=== PATIENT | female | born 1930 | race Caucasian/White ===

== ENCOUNTER 2016-08-28 09:01 | Inpatient (IN) | payer OTHER ==
[~2016-08-28] VITALS: Ht 149.9 cm; Wt 62.3 kg
[~2016-08-28 09:01] MED LIST: AMARYL1 MG PO; ATORVASTATIN CA40 MG PO; Aspirin E.C. PO; Ativan PO; BENICAR HCT 401 EACH PO; BENICAR40 MG PO; BUMETANIDE1 MG PO; CALCITRIOL0.25 MCG PO; CIPRO250 MG PO; CIPRO500 MG PO; CLOPIDOGREL75 MG PO; COZAAR25 MG PO; DEMADEX20 MG PO; ERGOCALCIF50000 UNIT PO; FERROUS SULFAT325 MG PO; FISH OIL SOFTG1 EACH PO; FISH OIL500 MG PO; FUROSEMIDE40 MG PO; Fish Oil PO; GLIMEPIRIDE1 MG PO; GLIPIZIDE5 MG PO; INDOCIN50 MG PO; INDOMETHACIN50 MG PO; JANUVIA25 M1 PO; JENTADUETO 2.51 EACH PO; Janumet 50/1,000 PO; LASIX40 MG PO; LIPITOR40 MG PO; LO-DOSE ASPIRIN81 M1 PO; LOPRESSOR100 M1 PO; LOSARTAN POTASS25 MG PO; LYRICA75 MG PO; Lasix PO; METFORMIN HCL1000 M1 PO; METOPROLOL TAR100 MG PO; NAMENDA XR28 MG PO; Norvasc PO; POTASSIUM CHLO10 ME3 PO; Plavix PO; Protonix PO; TOPROL XL100 MG PO
[2016-08-28 09:59] LABS: CHLORIDE 112 mEq/L (99-109); POTASSIUM 4.9 mEq/L (3.7-5.4); SODIUM 139 mEq/L (136-147)
[2016-08-28 10:02] LABS: ANION GAP 10 MEQ/L (2-14)
[2016-08-28 10:03] LABS: HEMATOCRIT 27.9 % (36.0-46.0); MCH 30.5 PG (29.0-34.0); MCHC 32.6 G/DL (30.0-36.0); MCV 93.6 FL (83-99); MEAN PLAT.VOLUME 11.7 uM^3 (9.5-12.4); PLATELET COUNT 191 K/uL (156-360); RBC DIS.WIDTH-CV 16.2 % (11.8-14.6); RBC DIS.WIDTH-SD 54.6 % (39-53); RED BLOOD COUNT 2.98 M/uL (3.80-5.20); WHITE BLOOD COUNT 8.8 K/uL (4.1-10.2)
[2016-08-28 10:03] LABS: TOTAL BILIRUBIN 0.3 mg/dL (0.0-1.0)
[2016-08-28 10:05] LABS: ALKALINE PHOSPHATASE 85 IU/L (3-129); GFR ESTIMATE (CALCULATED) 20 mL/min/
[2016-08-28 10:06] LABS: UREA NITROGEN (BUN) 99 mg/dL (9-23)
[2016-08-28 10:07] LABS: GLUCOSE 130 mg/dL (70-99)
[2016-08-28 10:08] LABS: LIPASE 733 U/L (1.0-51.0)
[2016-08-28 10:08] LABS: EOSINOPHIL (%) 0.7 % (0-5); EOSINOPHIL COUNT 0.1 K/uL (0-0.3); IMMATURE GRANULOCYTE (%) 0.6 % (0.0-0.7); IMMATURE GRANULOCYTE COUNT 0.1 K/uL; LYMPHOCYTE COUNT 1.1 K/uL (1.0-2.8); MONOCYTE (%) 8.8 % (3-12); MONOCYTE COUNT 0.8 K/uL (0-0.8); NEUTROPHIL (%) 77.7 % (45-76); NEUTROPHIL COUNT 6.8 K/uL (1.8-6.4)
[2016-08-28 10:12] LABS: TROP-I INTERPRETATION NEGATIVE; TROPONIN-I 0.04 ng/mL (0.0-0.30)
[2016-08-28] MEDS ORDERED: JANUVIA100 MG PO (11:26)
[2016-08-28] MEDS ORDERED: CEFDINIR300 MG PO (11:28)
[2016-08-28] MEDS ORDERED: CHERATUSSIN AC473 ML PO (11:28)
[2016-08-28] MEDS ORDERED: HUMALOG100 UNIT/2 SC (11:29)
[2016-08-28] MEDS ORDERED: TRESIBA FL100 UNIT/1 SC (11:29)
[2016-08-28 19:48] VITALS: BP 135/80
[2016-08-28 23:54] VITALS: BP 123/63
[2016-08-29 03:51] VITALS: BP 163/69
[2016-08-29 07:25] LABS: HEMATOCRIT 28.5 % (36.0-46.0); MCH 29.6 PG (29.0-34.0); MCHC 31.2 G/DL (30.0-36.0); MCV 94.7 FL (83-99); PLATELET COUNT 193 K/uL (156-360); RBC DIS.WIDTH-CV 16.8 % (11.8-14.6); RBC DIS.WIDTH-SD 58.1 % (39-53); RED BLOOD COUNT 3.01 M/uL (3.80-5.20); WHITE BLOOD COUNT 7.7 K/uL (4.1-10.2)
[2016-08-29 07:46] LABS: ALKALINE PHOSPHATASE 66 IU/L (3-129); AMYLASE 59 IU/L (1-118); ANION GAP 11 MEQ/L (2-14); CHLORIDE 113 MEQ/L (99-109); GFR ESTIMATE (CALCULATED) 27 mL/min/; LIPASE 28 U/L (1.0-51.0); POTASSIUM 4.4 MEQ/L (3.7-5.4); SAMPLE HEMOLYSIS CHECK 0; SAMPLE ICTERIC CHECK 0; SAMPLE LIPEMIA CHECK 0; SODIUM 140 MEQ/L (136-147); TOTAL BILIRUBIN 0.5 MG/DL (0.0-1.0); UREA NITROGEN (BUN) 71 mg/dL (9-23)
[2016-08-29 07:49] LABS: GLUCOSE 83 mg/dL (70-99)
[2016-08-29 08:02] VITALS: BP 136/65
[2016-08-29 12:10] VITALS: BP 137/67
[2016-08-29 15:24] VITALS: BP 132/82
[2016-08-29 19:01] VITALS: BP 139/65
[2016-08-29 23:51] VITALS: BP 143/85
[2016-08-30 03:50] VITALS: BP 140/71
[2016-08-30 06:37] LABS: HEMATOCRIT 25.9 % (36.0-46.0); MCH 30.7 PG (29.0-34.0); MCHC 32.4 G/DL (30.0-36.0); MCV 94.5 FL (83-99); MEAN PLAT.VOLUME 10.9 uM^3 (9.5-12.4); PLATELET COUNT 167 K/uL (156-360); RBC DIS.WIDTH-CV 16.6 % (11.8-14.6); RBC DIS.WIDTH-SD 57.1 % (39-53); RED BLOOD COUNT 2.74 M/uL (3.80-5.20); WHITE BLOOD COUNT 5.6 K/uL (4.1-10.2)
[2016-08-30 07:08] LABS: ALKALINE PHOSPHATASE 59 IU/L (3-129); ANION GAP 10 MEQ/L (2-14); CHLORIDE 109 MEQ/L (99-109); GFR ESTIMATE (CALCULATED) 35 mL/min/; GLUCOSE 191 mg/dL (70-99); LIPASE 36 U/L (1.0-51.0); POTASSIUM 4.4 MEQ/L (3.7-5.4); SAMPLE HEMOLYSIS CHECK 0; SAMPLE ICTERIC CHECK 0; SAMPLE LIPEMIA CHECK 0; SODIUM 136 MEQ/L (136-147); TOTAL BILIRUBIN 0.4 MG/DL (0.0-1.0); UREA NITROGEN (BUN) 48 mg/dL (9-23)
[2016-08-30 08:06] VITALS: BP 184/71
[2016-08-30 11:43] VITALS: BP 124/58
[2016-08-30 15:18] LABS: IRON 54 MCG/DL (35-150)
[2016-08-30 16:05] VITALS: BP 141/87
[2016-08-30 20:00] VITALS: BP 147/67
[2016-08-31] VITALS: BP 135/58
[2016-08-31 04:00] VITALS: BP 160/70
[2016-08-31 07:14] LABS: CARBON DIOXIDE (BICARBONATE) 19.6 MEQ/L (20-31)
[2016-08-31 07:45] LABS: ALKALINE PHOSPHATASE 68 IU/L (3-129); ANION GAP 7 MEQ/L (2-14); CHLORIDE 113 MEQ/L (99-109); GFR ESTIMATE (CALCULATED) 41 mL/min/; GLUCOSE 204 mg/dL (70-99); POTASSIUM 4.5 MEQ/L (3.7-5.4); SAMPLE HEMOLYSIS CHECK 0; SAMPLE ICTERIC CHECK 0; SAMPLE LIPEMIA CHECK 0; SODIUM 137 MEQ/L (136-147); UREA NITROGEN (BUN) 34 mg/dL (9-23)
[2016-08-31 07:47] LABS: INTACT PARATHYROID HORMONE 36 pg/mL (10-69); TOTAL BILIRUBIN 0.5 MG/DL (0.0-1.0)
[2016-08-31 07:51] LABS: HEMATOCRIT 25.6 % (36.0-46.0); MCHC 33.2 G/DL (30.0-36.0); MCV 93.4 FL (83-99); MEAN PLAT.VOLUME 10.6 uM^3 (9.5-12.4); PLATELET COUNT 174 K/uL (156-360); RBC DIS.WIDTH-CV 16.2 % (11.8-14.6); RBC DIS.WIDTH-SD 54.7 % (39-53); RED BLOOD COUNT 2.74 M/uL (3.80-5.20)
[2016-08-31 07:54] LABS: ANION GAP 7 MEQ/L (2-14); CHLORIDE 113 MEQ/L (99-109); GFR ESTIMATE (CALCULATED) 41 mL/min/; GLUCOSE 204 mg/dL (70-99); LIPASE 38 U/L (1.0-51.0); POTASSIUM 4.5 MEQ/L (3.7-5.4); SAMPLE HEMOLYSIS CHECK 0; SAMPLE ICTERIC CHECK 0; SAMPLE LIPEMIA CHECK 0; SODIUM 137 MEQ/L (136-147); UREA NITROGEN (BUN) 34 mg/dL (9-23)
[2016-08-31 08:00] VITALS: BP 178/85
[2016-08-31 08:13] LABS: WHITE BLOOD COUNT 7.5 K/uL (4.1-10.2)
[2016-08-31 12:00] VITALS: BP 161/70
[2016-08-31 15:59] VITALS: BP 183/84
[2016-08-31 20:00] VITALS: BP 178/66
[2016-08-31 21:40] LABS: POINT-OF-CARE METER ID UU14162508
[2016-09-01 00:20] VITALS: BP 140/64
[2016-09-01 04:00] VITALS: BP 165/78
[2016-09-01 08:14] VITALS: BP 152/75
[2016-09-01 09:04] LABS: ALKALINE PHOSPHATASE 107 IU/L (3-129); ANION GAP 8 MEQ/L (2-14); CHLORIDE 112 MEQ/L (99-109); GFR ESTIMATE (CALCULATED) 35 mL/min/; GLUCOSE 212 mg/dL (70-99); GLUCOSE 213 mg/dL (70-99); LIPASE 21 U/L (1.0-51.0); POTASSIUM 4.9 MEQ/L (3.7-5.4); SAMPLE HEMOLYSIS CHECK 0; SAMPLE ICTERIC CHECK 0; SAMPLE LIPEMIA CHECK 0; SODIUM 139 MEQ/L (136-147); TOTAL BILIRUBIN 0.5 MG/DL (0.0-1.0); UREA NITROGEN (BUN) 32 mg/dL (9-23); UREA NITROGEN (BUN) 33 mg/dL (9-23)
[2016-09-01 09:14] LABS: MCH 30.9 PG (29.0-34.0); MCHC 32.6 G/DL (30.0-36.0); MCV 94.7 FL (83-99); MEAN PLAT.VOLUME 10.7 uM^3 (9.5-12.4); PLATELET COUNT 205 K/uL (156-360); RBC DIS.WIDTH-CV 16.1 % (11.8-14.6); RBC DIS.WIDTH-SD 55.7 % (39-53); RED BLOOD COUNT 2.85 M/uL (3.80-5.20)
[2016-09-01 09:26] LABS: WHITE BLOOD COUNT 10.2 K/uL (4.1-10.2)
[2016-09-01 15:24] VITALS: BP 135/79
[2016-09-01 20:16] VITALS: BP 170/68
[2016-09-02] VITALS: BP 141/65
[2016-09-02 04:00] VITALS: BP 144/78
[2016-09-02 08:55] VITALS: BP 144/75
[2016-09-02 09:45] LABS: HEMATOCRIT 28.4 % (36.0-46.0); MCH 30.7 PG (29.0-34.0); MCV 95.9 FL (83-99); MEAN PLAT.VOLUME 11.3 uM^3 (9.5-12.4); PLATELET COUNT 212 K/uL (156-360); RBC DIS.WIDTH-CV 16.2 % (11.8-14.6); RBC DIS.WIDTH-SD 55.8 % (39-53); RED BLOOD COUNT 2.96 M/uL (3.80-5.20)
[2016-09-02 10:24] LABS: WHITE BLOOD COUNT 13.5 K/uL (4.1-10.2)
[2016-09-02 10:33] LABS: ALKALINE PHOSPHATASE 118 IU/L (3-129); ANION GAP 9 MEQ/L (2-14); CHLORIDE 110 MEQ/L (99-109); GFR ESTIMATE (CALCULATED) 30 mL/min/; GLUCOSE 246 mg/dL (70-99); POTASSIUM 5.5 MEQ/L (3.7-5.4); SAMPLE HEMOLYSIS CHECK 0; SAMPLE ICTERIC CHECK 0; SAMPLE LIPEMIA CHECK 0; SODIUM 137 MEQ/L (136-147); TOTAL BILIRUBIN 0.5 MG/DL (0.0-1.0); UREA NITROGEN (BUN) 42 mg/dL (9-23)
[2016-09-02 12:05] VITALS: BP 179/73
[2016-09-02 16:49] VITALS: BP 146/74
[2016-09-02] MEDS ORDERED: PHENERGAN-CODE120 ML PO (16:55)
[2016-09-02] MEDS ORDERED: DULOXETINE HCL30 MG PO (16:55)
[2016-09-02] MEDS ORDERED: OXYCODONE HCL5 MG PO (16:55)
[2016-09-02] MEDS ORDERED: CEFTIN250 MG PO (16:55)
[2016-09-02] MEDS ORDERED: PANTOPRAZOLE SO40 MG PO (16:55)
[2016-09-02] MEDS ORDERED: TORSEMIDE10 MG PO (16:55)
[2016-09-02] MEDS ORDERED: NABI650T PO (16:55)
== END 2016-09-02 18:48 | disposition home health service (06) | DRG 438 ==
LOC: EME → EDBD 09:01 → 2EAST 12:30 → EDOF 12:30 → 2EAST 17:02
PROVIDERS: Emergency Medicine; Internal Medicine
DX: K85.10 Biliary acute pancreatitis without necrosis or infection (principal); J18.9 Pneumonia, unspecified organism; N17.9 Acute kidney failure, unspecified; K81.9 Cholecystitis, unspecified; K83.8 Other specified diseases of biliary tract; I13.0 Hypertensive heart and chronic kidney disease with heart failure and stage 1 through stage 4 chronic kidney disease, or unspecified chronic kidney disease; I50.9 Heart failure, unspecified; N18.3 Chronic kidney disease, stage 3 (moderate); I42.9 Cardiomyopathy, unspecified; N25.81 Secondary hyperparathyroidism of renal origin; E11.21 Type 2 diabetes mellitus with diabetic nephropathy; E11.22 Type 2 diabetes mellitus with diabetic chronic kidney disease; E11.65 Type 2 diabetes mellitus with hyperglycemia; D63.1 Anemia in chronic kidney disease; D50.9 Iron deficiency anemia, unspecified; I27.2 Other secondary pulmonary hypertension; I08.1 Rheumatic disorders of both mitral and tricuspid valves; I25.10 Atherosclerotic heart disease of native coronary artery without angina pectoris; E55.9 Vitamin D deficiency, unspecified; J44.9 Chronic obstructive pulmonary disease, unspecified; F03.90 Unspecified dementia, unspecified severity, without behavioral disturbance, psychotic disturbance, mood disturbance, and anxiety; Z95.1 Presence of aortocoronary bypass graft; Z79.4 Long term (current) use of insulin; Z86.73 Personal history of transient ischemic attack (TIA), and cerebral infarction without residual deficits; Z87.891 Personal history of nicotine dependence
CPT/HCPCS: 36415; 70450; 71020; 74150; 74183; 76705; 80053; 80069; 81003; 82150; 82306; 82803; 82948; 83540; 83690; 83970; 84466; 84484; 85025; 85027; 86850; 86900; 86901; 87040; 93005; 94640; 94640 76; 94799; 99202; 99281; 99285; J0692; J1815; J2405; J7040; J7050

== ENCOUNTER 2016-10-25 14:14 | Observation (INO) | payer OTHER ==
[~2016-10-25] VITALS: Ht 149.9 cm; Wt 66.6 kg
[~2016-10-25 14:14] MED LIST changes: +CEFDINIR300 MG PO; +CEFTIN250 MG PO; +CHERATUSSIN AC473 ML PO; +DULOXETINE HCL30 MG PO; +HUMALOG100 UNIT/2 SC; +JANUVIA100 MG PO; +NABI650T PO; +OXYCODONE HCL5 MG PO; +PANTOPRAZOLE SO40 MG PO; +PHENERGAN-CODE120 ML PO; +TORSEMIDE10 MG PO; +TRESIBA FL100 UNIT/1 SC
[2016-10-25 15:19] LABS: EOSINOPHIL (%) 0 % (0-5); HEMATOCRIT 33.1 % (36.0-46.0); IMMATURE GRANULOCYTE (%) 0.7 % (0.0-0.7); IMMATURE GRANULOCYTE COUNT 0.1 K/uL; INSTRUMENT ABS NEUTROPHIL CT 7.1 K/uL; LYMPHOCYTE COUNT 1.6 K/uL (1.0-2.8); MCH 29.9 PG (29.0-34.0); MCHC 30.2 G/DL (30.0-36.0); MCV 99.1 FL (83-99); MEAN PLAT.VOLUME 11.7 uM^3 (9.5-12.4); MONOCYTE (%) 6.7 % (3-12); MONOCYTE COUNT 0.6 K/uL (0-0.8); NEUTROPHIL (%) 75.3 % (45-76); NEUTROPHIL COUNT 7.1 K/uL (1.8-6.4); PLATELET COUNT 238 K/uL (156-360); RBC DIS.WIDTH-CV 19.5 % (11.8-14.6); RBC DIS.WIDTH-SD 71.2 % (39-53); RED BLOOD COUNT 3.34 M/uL (3.80-5.20); WHITE BLOOD COUNT 9.4 K/uL (4.1-10.2)
[2016-10-25 15:30] LABS: CHLORIDE 100 mEq/L (99-109); POTASSIUM 4.8 mEq/L (3.7-5.4); SODIUM 138 mEq/L (136-147)
[2016-10-25 15:33] LABS: ANION GAP 13 MEQ/L (2-14)
[2016-10-25 15:36] LABS: ALKALINE PHOSPHATASE 85 IU/L (3-129); GFR ESTIMATE (CALCULATED) 25 mL/min/
[2016-10-25 15:37] LABS: GLUCOSE 210 mg/dL (70-99); UREA NITROGEN (BUN) 53 mg/dL (9-23)
[2016-10-25 16:12] LABS: ADD MIUA? NO; BILIRUBIN NEGATIVE; BLOOD NEGATIVE; COLOR YELLOW ((YELLOW)); GLUCOSE (STRIP) NEGATIVE; KETONES NEGATIVE; LEUKOCYTES NEGATIVE; NITRITE NEGATIVE; PROTEIN (STRIP) NEGATIVE; SPECIFIC GRAVITY 1.009 (1.000-1.030); UCUL ADDED? NO; UROBILINOGEN 0.2 MG/DL (0.2-1.0)
[2016-10-25] MEDS ORDERED: CYMBALTA30 MG PO (19:37)
[2016-10-25] MEDS ORDERED: FISH OIL300 MG PO (19:37)
[2016-10-25] MEDS ORDERED: PROTONIX40 MG PO (19:37)
[2016-10-25] MEDS ORDERED: JANUVIA25 M1 PO (19:38)
[2016-10-25] MEDS ORDERED: TORSEMIDE10 MG PO (19:38)
[2016-10-25 21:18] LABS: POINT-OF-CARE METER ID UU13113702
[2016-10-25 21:35] VITALS: BP 145/86
[2016-10-26 00:17] VITALS: BP 132/59
[2016-10-26 03:00] VITALS: BP 146/70
[2016-10-26 07:16] LABS: HEMATOCRIT 35.5 % (36.0-46.0); MCH 29.8 PG (29.0-34.0); MCHC 29.6 G/DL (30.0-36.0); MCV 100.9 FL (83-99); MEAN PLAT.VOLUME 11.6 uM^3 (9.5-12.4); NRBC (%) 0.5 /100 WBC (0-0); PLATELET COUNT 239 K/uL (156-360); RBC DIS.WIDTH-SD 73.6 % (39-53); RED BLOOD COUNT 3.52 M/uL (3.80-5.20); WHITE BLOOD COUNT 11.2 K/uL (4.1-10.2)
[2016-10-26 07:37] LABS: ANION GAP 10 MEQ/L (2-14); CHLORIDE 103 MEQ/L (99-109); GFR ESTIMATE (CALCULATED) 23 mL/min/; GLUCOSE 156 mg/dL (70-99); POTASSIUM 4.7 MEQ/L (3.7-5.4); SAMPLE HEMOLYSIS CHECK 0; SAMPLE ICTERIC CHECK 0; SAMPLE LIPEMIA CHECK 0; SODIUM 139 MEQ/L (136-147); UREA NITROGEN (BUN) 57 mg/dL (9-23)
[2016-10-26 07:54] VITALS: BP 151/86
[2016-10-26 10:57] VITALS: BP 135/60
[2016-10-26 15:48] VITALS: BP 127/82
[2016-10-26 19:47] VITALS: BP 134/66
== END 2016-10-26 20:53 | disposition home health service (06) ==
LOC: EME 14:14 → 5WEST 19:01 → EDOF 19:01 → 5WEST 21:23
PROVIDERS: Emergency Medicine; Internal Medicine
DX: R41.82 Altered mental status, unspecified (principal); N17.9 Acute kidney failure, unspecified; E86.0 Dehydration; E11.21 Type 2 diabetes mellitus with diabetic nephropathy; E11.22 Type 2 diabetes mellitus with diabetic chronic kidney disease; I12.9 Hypertensive chronic kidney disease with stage 1 through stage 4 chronic kidney disease, or unspecified chronic kidney disease; N18.3 Chronic kidney disease, stage 3 (moderate); E11.65 Type 2 diabetes mellitus with hyperglycemia; R19.00 Intra-abdominal and pelvic swelling, mass and lump, unspecified site; D63.1 Anemia in chronic kidney disease; R10.9 Unspecified abdominal pain; F03.90 Unspecified dementia, unspecified severity, without behavioral disturbance, psychotic disturbance, mood disturbance, and anxiety
CPT/HCPCS: 70450; 71010; 74176; 76856; 80048; 80053; 81003; 82948; 83605; 85025; 85027; 93005; 99281; 99285; G0378; G8978 GP CM; G8979 GP CM; J1644; J1815; J7030

== ENCOUNTER 2016-10-27 09:54 | Inpatient (IN) | payer OTHER ==
[~2016-10-27] VITALS: Ht 149.9 cm; Wt 67.1 kg
[~2016-10-27 09:54] MED LIST changes: +CYMBALTA30 MG PO; +FISH OIL300 MG PO; +PROTONIX40 MG PO
[2016-10-27 10:41] LABS: POINT-OF-CARE METER ID UU14100415
[2016-10-27 10:45] LABS: HEMATOCRIT 38.7 % (36.0-46.0); MCH 29.8 PG (29.0-34.0); MCHC 29.7 G/DL (30.0-36.0); MCV 100.3 FL (83-99); MEAN PLAT.VOLUME 11.9 uM^3 (9.5-12.4); PLATELET COUNT 217 K/uL (156-360); RBC DIS.WIDTH-CV 20.2 % (11.8-14.6); RBC DIS.WIDTH-SD 73.4 % (39-53); RED BLOOD COUNT 3.86 M/uL (3.80-5.20); WHITE BLOOD COUNT 10.2 K/uL (4.1-10.2)
[2016-10-27 10:58] LABS: CHLORIDE 107 mEq/L (99-109); POTASSIUM 5.4 mEq/L (3.7-5.4)
[2016-10-27 11:00] LABS: GLUCOSE 76 mg/dL (70-99)
[2016-10-27 11:01] LABS: ANION GAP 23 MEQ/L (2-14); SODIUM 146 mEq/L (136-147)
[2016-10-27 11:04] LABS: GFR ESTIMATE (CALCULATED) 16 mL/min/
[2016-10-27 11:05] LABS: UREA NITROGEN (BUN) 74 mg/dL (9-23)
[2016-10-27 11:10] LABS: TROP-I INTERPRETATION NEGATIVE; TROPONIN-I 0.11 ng/mL (0.0-0.30)
[2016-10-27 11:13] LABS: EOSINOPHIL (%) 0 % (0-5); IMMATURE GRANULOCYTE (%) 1.3 % (0.0-0.7); IMMATURE GRANULOCYTE COUNT 0.1 K/uL; INSTRUMENT ABS NEUTROPHIL CT 7.9 K/uL; LYMPHOCYTE COUNT 1.4 K/uL (1.0-2.8); MONOCYTE (%) 7.9 % (3-12); MONOCYTE COUNT 0.8 K/uL (0-0.8); NEUTROPHIL (%) 77.1 % (45-76); NEUTROPHIL COUNT 7.9 K/uL (1.8-6.4)
[2016-10-27 11:43] LABS: POINT-OF-CARE METER ID UU14100415
[2016-10-27 14:13] LABS: POINT-OF-CARE METER ID UU14100415
[2016-10-27 17:28] LABS: POINT-OF-CARE METER ID UU14100415
[2016-10-27 20:12] LABS: POINT-OF-CARE METER ID UU13113702
[2016-10-27 22:23] VITALS: BP 167/63
[2016-10-28 03:57] VITALS: BP 141/67
[2016-10-28 04:03] LABS: POINT-OF-CARE METER ID UU14162508
[2016-10-28 05:14] LABS: ADD MIUA? YES; BILIRUBIN SMALL; BLOOD SMALL; COLOR AMBER ((YELLOW)); GLUCOSE (STRIP) NEGATIVE; KETONES NEGATIVE; LEUKOCYTES LARGE; NITRITE NEGATIVE; PROTEIN (STRIP) 30; SPECIFIC GRAVITY 1.013 (1.000-1.030)
[2016-10-28 05:59] LABS: EPITHELIAL CELLS 2+ /HPF; WHITE BLOOD CELLS TNTC /HPF (0-5)
[2016-10-28 06:00] LABS: BACTERIA 3+ /HPF
[2016-10-28 06:01] LABS: CASTS PRESENT /LPF; HYALINE CASTS 0-5 /LPF; MUCUS NONE SEEN /LPF
[2016-10-28 06:20] LABS: POINT-OF-CARE METER ID UU14162508
[2016-10-28 08:08] VITALS: BP 164/78
[2016-10-28 11:15] VITALS: BP 129/61
[2016-10-28 12:22] LABS: BASE EXCESS -4.7 mEq/L (-3 to +3); CARBOXY HGB 1.9 % (0-5); METHEMOGLOBIN 1.3 % (0-1.5); PCO2 30 mm Hg (35-45); PO2 101 mm Hg (80-100); pH 7.41 (7.35-7.45)
[2016-10-28 12:23] LABS: COMMENTS - BLOOD GASES C+A-N/A; DEVICE NASAL CANNULA; O2 FLOW 1.5 L/MIN; SITE LR
[2016-10-28 12:25] LABS: HEMATOCRIT 36.5 % (36.0-46.0); MCH 29.9 PG (29.0-34.0); MCHC 29.6 G/DL (30.0-36.0); MCV 101.1 FL (83-99); MEAN PLAT.VOLUME 12.2 uM^3 (9.5-12.4); NRBC (%) 0.3 /100 WBC (0-0); PLATELET COUNT 183 K/uL (156-360); RBC DIS.WIDTH-CV 20.8 % (11.8-14.6); RBC DIS.WIDTH-SD 74.5 % (39-53); RED BLOOD COUNT 3.61 M/uL (3.80-5.20); WHITE BLOOD COUNT 11.1 K/uL (4.1-10.2)
[2016-10-28 12:41] LABS: ANION GAP 17 MEQ/L (2-14); CHLORIDE 109 MEQ/L (99-109); POTASSIUM 5.3 MEQ/L (3.7-5.4); SAMPLE HEMOLYSIS CHECK 0; SAMPLE ICTERIC CHECK 0; SAMPLE LIPEMIA CHECK 0; SODIUM 145 MEQ/L (136-147)
[2016-10-28 12:47] LABS: GFR ESTIMATE (CALCULATED) 13 mL/min/; UREA NITROGEN (BUN) 87 mg/dL (9-23)
[2016-10-28 12:53] LABS: GLUCOSE 185 mg/dL (70-99)
[2016-10-28 13:43] LABS: TROP-I INTERPRETATION INDETERMINATE; TROPONIN-I 0.31 ng/mL (0.0-0.30)
[2016-10-28 16:35] LABS: POINT-OF-CARE METER ID UU14162508
[2016-10-28 16:41] VITALS: BP 125/63
[2016-10-28 19:56] VITALS: BP 137/81
[2016-10-29] VITALS (7 sets, daily range): BP systolic 137–184; BP diastolic 64–96
[2016-10-29 06:38] LABS: HEMATOCRIT 41.1 % (36.0-46.0); MCH 29.7 PG (29.0-34.0); MCHC 29.4 G/DL (30.0-36.0); MEAN PLAT.VOLUME 12.3 uM^3 (9.5-12.4); NRBC (%) 0.4 /100 WBC (0-0); PLATELET COUNT 156 K/uL (156-360); RBC DIS.WIDTH-CV 21.1 % (11.8-14.6); RBC DIS.WIDTH-SD 74.8 % (39-53); RED BLOOD COUNT 4.07 M/uL (3.80-5.20)
[2016-10-29 06:43] LABS: WHITE BLOOD COUNT 15.9 K/uL (4.1-10.2)
[2016-10-29 07:37] LABS: ANION GAP 17 MEQ/L (2-14); CHLORIDE 114 MEQ/L (99-109); GFR ESTIMATE (CALCULATED) 14 mL/min/; POTASSIUM 4.6 MEQ/L (3.7-5.4); SAMPLE HEMOLYSIS CHECK 0; SAMPLE ICTERIC CHECK 0; SAMPLE LIPEMIA CHECK 0; SODIUM 152 MEQ/L (136-147); TOTAL BILIRUBIN 1.5 MG/DL (0.0-1.0); UREA NITROGEN (BUN) 85 mg/dL (9-23)
[2016-10-29 07:38] LABS: ALKALINE PHOSPHATASE 154 IU/L (3-129); GLUCOSE 104 mg/dL (70-99)
[2016-10-30 16:00] VITALS: BP 000/00
== END 2016-10-30 19:30 | DRG 70 ==
LOC: EME 09:54 → EDOF 16:40 → 5EAST 16:40 → 2EAST 16:40 → 5EAST 10-29 14:03
PROVIDERS: Emergency Medicine; Hospitalist; Internal Medicine
DX: G93.41 Metabolic encephalopathy (principal); J18.9 Pneumonia, unspecified organism; E11.649 Type 2 diabetes mellitus with hypoglycemia without coma; N17.9 Acute kidney failure, unspecified; N39.0 Urinary tract infection, site not specified; I13.0 Hypertensive heart and chronic kidney disease with heart failure and stage 1 through stage 4 chronic kidney disease, or unspecified chronic kidney disease; I50.30 Unspecified diastolic (congestive) heart failure; N18.3 Chronic kidney disease, stage 3 (moderate); E11.22 Type 2 diabetes mellitus with diabetic chronic kidney disease; E86.0 Dehydration; E87.2 Acidosis; E87.1 Hypo-osmolality and hyponatremia; Z66 Do not resuscitate; Z51.5 Encounter for palliative care; D63.1 Anemia in chronic kidney disease; J44.9 Chronic obstructive pulmonary disease, unspecified; I25.10 Atherosclerotic heart disease of native coronary artery without angina pectoris; F03.90 Unspecified dementia, unspecified severity, without behavioral disturbance, psychotic disturbance, mood disturbance, and anxiety; M19.90 Unspecified osteoarthritis, unspecified site; I25.2 Old myocardial infarction; F32.9 Major depressive disorder, single episode, unspecified; M10.9 Gout, unspecified; Z79.02 Long term (current) use of antithrombotics/antiplatelets; Z79.4 Long term (current) use of insulin; Z95.1 Presence of aortocoronary bypass graft; Z95.5 Presence of coronary angioplasty implant and graft; Z87.891 Personal history of nicotine dependence
CPT/HCPCS: 36600; 70450; 71010; 74176; 76856; 80048; 80053; 81003; 82140; 82803; 82948; 83605; 84484; 85025; 85027; 87040; 87086; 93005; 94640; 94799; 99202; 99281; 99285; G0378; G8978 GP CM; G8979 GP CM; G8980 GP CM; J0360; J0692; J1644; J1650; J1815; J1940; J2060; J2270; J7030; J7040; J7042; J7050